=== PATIENT | male | born 1950 | race Hispanic/Latino ===

== ENCOUNTER → 2017-06-26 | Outpatient (CLI) | payer OTHER, MEDICARE ==
[~2017-06-26] MED LIST: PANT40TA25 PO
== END | disposition home or self-care (01) ==
LOC: RAH 15:46
PROVIDERS: ATTEND Urology
DX: R10.9 Unspecified abdominal pain (principal)
CPT/HCPCS: 76857

== ENCOUNTER 2019-02-16 22:01 | Observation (INO) | payer OTHER, MEDICARE ==
[~2019-02-16] VITALS: Ht 175.3 cm; Wt 77.1 kg
[2019-02-16] MEDS ORDERED: ONDANSETRON HCL 4 MG/2 ML VIAL ONE (22:17)
[2019-02-16] MEDS ORDERED: SODIUM CHLORIDE 0.9% 1000ML 1,000 ML IV ONE (22:18)
[2019-02-16 22:22] LABS: BASOPHILS % (AUTO) 0.1 % (0.0-5.0); EOSINOPHILS % (AUTO) 0.3 % (0.0-8.0); HEMATOCRIT 45.7 % (42-54); LYMPHOCYTES % (AUTO) 10.9 % (21.0-51.0); MEAN CORPUSCULAR HGB CONC 34.4 g/dL (32.0-36.0); MEAN CORPUSCULAR VOLUME 90.1 fL (79-99); MONOCYTES % (AUTO) 5.9 % (3.0-13.0); NEUTROPHILS % (AUTO) 82.5 % (40.0-77.0); PLATELET COUNT (AUTO) 227 K/uL (130-400); RED BLOOD CELL COUNT(AUTO) 5.07 MIL/uL (4.50-6.20); RED CELL DISTRIBUTION WIDTH 12.4 % (11.0-15.5); WHITE BLOOD COUNT (AUTO) 7.2 K/uL (4.8-10.8)
[2019-02-16 22:35] LABS: CREATININE 0.9 mg/dL (0.5-1.5); INR 0.97 (0.85-1.15); PARTIAL THROMBOPLASTIN TIME 22.9 SEC (26.3-35.5); POTASSIUM 3.7 mmol/L (3.5-5.1); PROTHROMBIN TIME 10.2 SEC (9.6-11.6)
[2019-02-16 22:41] LABS: ALBUMIN 4.4 g/dL (3.5-5.0); BILIRUBIN,TOTAL 0.9 mg/dL (0.2-1.0); TOTAL PROTEIN, SERUM 7.7 g/dL (6.0-8.3)
[2019-02-16 23:08] LABS: BILIRUBIN,URINE Negative (NEGATIVE); COLOR,URINE Yellow (YELLOW); GLUCOSE, URINE (UA) Negative (NEGATIVE); KETONES,URINE 40 mg/dL (NEGATIVE); LEUKOCYTE ESTERASE ,URINE Negative (NEGATIVE); NITRATE,URINE Negative (NEGATIVE); OCCULT BLOOD,URINE Negative (NEGATIVE); PH,URINE 7.5 (5.0-8.0); PROTEIN,URINE POS 1+ mg/dL (NEGATIVE)
[2019-02-16 23:11] LABS: APPEARANCE,URINE SLIGHTLY CLOUDY (CLEAR)
[2019-02-16] MEDS ORDERED: IOHEXOL-350 75 ML VIAL IV ONE (23:23)
[2019-02-16 23:26] LABS: RBC,URINE None Seen /HPF (0-1); WBC,URINE 0-1 /HPF (0-1)
[2019-02-16 23:27] LABS: AMORPHOUS SEDIMENT,UR Many /LPF (None Seen); BACTERIA,URINE Few /HPF (None Seen); HYALINE CASTS, URINE 0-1 /LPF (0-1 /LPF); MUCUS,URINE Rare LPF (None Seen); SQUAMOUS EPITHELIAL CELL,UR 0-2 /HPF (0-2)
[2019-02-17] MEDS ORDERED: LIDOCAINE HCL 2% JELLY 5 ML ONE (00:56)
[2019-02-17] MEDS ORDERED: SODIUM CHLORIDE 0.9% 1000ML 1,000 ML IV ONE (01:26)
[2019-02-17] MEDS ORDERED: ONDANSETRON HCL 4 MG/2 ML VIAL IVP PRN (02:45)
[2019-02-17 05:15] LABS: BASOPHILS % (AUTO) 0.1 % (0.0-5.0); HEMATOCRIT 46.8 % (42-54); LYMPHOCYTES % (AUTO) 13.1 % (21.0-51.0); MEAN CORPUSCULAR HEMOGLOBIN 31.2 pg (27.0-33.0); MEAN CORPUSCULAR HGB CONC 34.4 g/dL (32.0-36.0); MEAN CORPUSCULAR VOLUME 90.7 fL (79-99); MONOCYTES % (AUTO) 2.7 % (3.0-13.0); NEUTROPHILS % (AUTO) 83.9 % (40.0-77.0); PLATELET COUNT (AUTO) 234 K/uL (130-400); RED BLOOD CELL COUNT(AUTO) 5.16 MIL/uL (4.50-6.20); RED CELL DISTRIBUTION WIDTH 12.6 % (11.0-15.5); WHITE BLOOD COUNT (AUTO) 8.6 K/uL (4.8-10.8)
[2019-02-17 05:30] VITALS: BP 173/98
[2019-02-17 05:31] LABS: CREATININE 0.9 mg/dL (0.5-1.5); POTASSIUM 4.4 mmol/L (3.5-5.1)
[2019-02-17] MEDS ORDERED: OMEP40CA13 PO (05:40)
[2019-02-17] MEDS ORDERED: POTASSIUM CHLORIDE 20MEQ/100ML 100 ML IV PRN (08:00)
[2019-02-17] MEDS ORDERED: DEXTROSE 50%-WATER 50 ML DISP.SYRIN IV PRN (08:00)
[2019-02-17] MEDS ORDERED: GLUCAGON 1MG KIT 1 MG ML IM PRN (08:00)
[2019-02-17] MEDS ORDERED: HYDRALAZINE HCL 20 MG/ML VIAL IV PRN (08:00)
[2019-02-17] MEDS ORDERED: DiphenhydrAMINE HCL 50 MG/ML VIAL IV PRN (08:00)
[2019-02-17] MEDS ORDERED: D5LR-20 MEQ KCL 1000ML BAG IV SCH (08:00)
[2019-02-17] MEDS ORDERED: LIDOCAINE HCL-MPF 1% 2ML VIAL IV PRN (08:00)
[2019-02-17] MEDS ORDERED: POTASSIUM CHLORIDE 10% ELIXIR 20 MEQ/15 ML UDCUP PO PRN (08:00)
[2019-02-17] MEDS ORDERED: POTASSIUM CHLORIDE 20 MEQ ERTAB PO PRN (08:00)
--- NOTE | 2019-02-17 08:00 | NUR ---
NOTE AAOX3. DENIES PAIN OR DISCOMFORT ONLY FROM HAVING NGT. HE REMAINS NPO FOR NOW. NO N.V ABOUT 100ML OUTPUT ONLY.
[2019-02-17 08:06] VITALS: BP 155/97
[2019-02-17] MEDS ORDERED: D5LR-20 MEQ KCL 1000 ML 1,000 ML IV SCH (08:45)
[2019-02-17] MEDS: MEROPENEM 500 MG VIAL IV SCH ×2 (10:06→16:59)
[2019-02-17] MEDS: METRONIDAZOLE 500MG/100ML BAG 100 ML IV SCH ×2 (10:06→16:59)
[2019-02-17] MEDS: FAMOTIDINE/PF 20 MG/2 ML VIAL IV SCH ×2 (10:07→19:28)
[2019-02-17 11:00] VITALS: BP 131/87
--- NOTE | 2019-02-17 11:00 | NUR ---
NOTE SHAHID BLACK WITH DR OLIVAREZ CAME IN AND ASSESSED THE PATIENT. WE WILL CLAMP NGT AND START CLEAR LIQUIDS. IF PATIENT TOLERATES WITHOUT N/V FOR ABOUT 2 HOURS WE WILL DC NGT PER SHAHID'S ORDERS.
[2019-02-17] MEDS: INSULIN HUMULIN R 100 UNIT/ML 3ML SQ SCH ×3 (11:30→20:27)
--- NOTE | 2019-02-17 15:00 | NUR ---
NOTE NGT REMOVED. WILL CONTINUE WITH CLEAR LIQUIDS FOR NOW.
[2019-02-17 16:24] VITALS: BP 123/86
[2019-02-17] MEDS ORDERED: ACETAMINOPHEN 325 MG TAB ONE (17:03)
[2019-02-17] MEDS ORDERED: ACETAMINOPHEN 325 MG TAB PO PRN (17:15)
--- NOTE | 2019-02-17 18:05 | NUR ---
INITIAL MET W PATIENT ALONE, AAOX3, LIVES W SPOUSE [facility] WHO WILL PROVIDE TRNSPORT HOME, UP AND ABOUT IN ROOM WITHOUT ASSISTANCE, STATES USES CAN AT TIME , HAS STAIRS OURSIDE HOME BUT HAS NO TORUBLE GETTING UP ; NO SHOWER CHAIR, NO PROVIDER SERVICES, DIRVES, [facility], DCP HOME. STARTED ON CLEAR LIQUIDS Addendum: 02/17/19 at 1807 by GRADY COOK RN CM Amended: Links added.
[2019-02-17] MEDS: MORPHINE SULFATE 2 MG/ML 1ML SYG IV PRN (20:28)
[2019-02-17 20:30] VITALS: BP 154/87
[2019-02-17 23:54] VITALS: BP 136/87
[2019-02-18] MEDS: MEROPENEM 500 MG VIAL IV SCH ×4 (01:28→22:47)
[2019-02-18] MEDS: METRONIDAZOLE 500MG/100ML BAG 100 ML IV SCH ×4 (01:28→22:47)
--- NOTE | 2019-02-18 03:15 | NUR ---
tele TELEMONITORING STATES PATIENT HAD A RUN OF VENTRICULAR TACHYCARDIA OF 7 SEC WITH 23 BEATS AT A RATE OF 193. PATIENT WAS EXAMINED AND FOUND TO BE ASYMPTOMATIC WITH RATE BACK TO NORMAL AT RATE OF 84. Ganesh SOSA PAGED TO NOTIFY. AWAITING CALL BACK.
--- NOTE | 2019-02-18 03:30 | NUR ---
MD CHRISTINA SOSA PAGED ONCE MORE WITH NO CALL BACK.
--- NOTE | 2019-02-18 04:00 | NUR ---
MD CHRISTINA SOSA RETURNED MY PAGE AND WAS NOTIFIED OF PATIENT STATUS AT THIS TIME AND THE RUN OF VT FROM EARLIER. ORDER TO MONITOR PATIENT AND DO A 12 LEAD ECG IN AM WERE GIVEN AND CARRIED OUT.
[2019-02-18 04:28] VITALS: BP 125/79
[2019-02-18 05:49] LABS: BASOPHILS % (AUTO) 0.2 % (0.0-5.0); EOSINOPHILS % (AUTO) 0.1 % (0.0-8.0); HEMATOCRIT 51.5 % (42-54); LYMPHOCYTES % (AUTO) 11.7 % (21.0-51.0); MEAN CORPUSCULAR HEMOGLOBIN 30.3 pg (27.0-33.0); MEAN CORPUSCULAR HGB CONC 32.8 g/dL (32.0-36.0); MEAN CORPUSCULAR VOLUME 92.5 fL (79-99); NEUTROPHILS % (AUTO) 80.7 % (40.0-77.0); PLATELET COUNT (AUTO) 256 K/uL (130-400); RED BLOOD CELL COUNT(AUTO) 5.57 MIL/uL (4.50-6.20); WHITE BLOOD COUNT (AUTO) 9.5 K/uL (4.8-10.8)
[2019-02-18] MEDS: INSULIN HUMULIN R 100 UNIT/ML 3ML SQ SCH ×4 (05:57→20:41)
[2019-02-18 06:02] LABS: POTASSIUM 3.7 mmol/L (3.5-5.1)
[2019-02-18 07:30] VITALS: BP 128/72
[2019-02-18] MEDS: FAMOTIDINE/PF 20 MG/2 ML VIAL IV SCH ×2 (09:37→20:41)
[2019-02-18 11:00] VITALS: BP 117/79
[2019-02-18] MEDS: METOCLOPRAMIDE 10 MG/2 ML VIAL IVP PRN ×2 (15:28→23:29)
[2019-02-18] MEDS: MORPHINE SULFATE 2 MG/ML 1ML SYG IV PRN ×2 (15:28→20:44)
[2019-02-18 16:07] VITALS: BP 155/83
[2019-02-18 19:46] VITALS: BP 138/80
--- NOTE | 2019-02-18 23:29 | NUR ---
n/v patient states vomited in commode green gastric secretions with blood streaks, patient flushed before nurse could assess, explain to patient not to flush or throw away next time for nurse to asses, no pain at this time,,reglan 5 mg ivp given as ordered, npo post midnite for sbft, patient verbalizes understanding via teach back
[2019-02-18 23:53] VITALS: BP 118/76
--- NOTE | 2019-02-19 | NUR ---
med effect resting comfortably, no nausea or vomiting noted
[2019-02-19] MEDS ORDERED: POTASSIUM PHOS 15 mMOL+NS250ML 250 ML IV ONE (00:45)
[2019-02-19] MEDS ORDERED: DICYCLOMINE HCL 20 MG TAB PO PRN (00:45)
[2019-02-19] MEDS ORDERED: PROMETHAZINE HCL 25 MG/ML 1ML AMPULE IM PRN (00:45)
[2019-02-19 04:00] VITALS: BP 114/70
[2019-02-19] MEDS: INSULIN HUMULIN R 100 UNIT/ML 3ML SQ SCH ×3 (05:53→16:30)
[2019-02-19 06:05] LABS: BASOPHILS % (AUTO) 0.3 % (0.0-5.0); EOSINOPHILS % (AUTO) 0.1 % (0.0-8.0); HEMATOCRIT 45.9 % (42-54); LYMPHOCYTES % (AUTO) 18.6 % (21.0-51.0); MEAN CORPUSCULAR HGB CONC 33.3 g/dL (32.0-36.0); MEAN CORPUSCULAR VOLUME 93.1 fL (79-99); MONOCYTES % (AUTO) 9.4 % (3.0-13.0); NEUTROPHILS % (AUTO) 71.3 % (40.0-77.0); PLATELET COUNT (AUTO) 217 K/uL (130-400); RED BLOOD CELL COUNT(AUTO) 4.93 MIL/uL (4.50-6.20); RED CELL DISTRIBUTION WIDTH 12.9 % (11.0-15.5); WHITE BLOOD COUNT (AUTO) 7.7 K/uL (4.8-10.8)
[2019-02-19 06:29] LABS: MAGNESIUM 1.8 mg/dL (1.80-2.40); PHOSPHORUS 2.5 mg/dL (2.5-4.9); POTASSIUM 3.6 mmol/L (3.5-5.1)
[2019-02-19 07:30] VITALS: BP 111/59
[2019-02-19] MEDS: METOCLOPRAMIDE 10 MG/2 ML VIAL IVP PRN (07:47)
[2019-02-19] MEDS: MORPHINE SULFATE 2 MG/ML 1ML SYG IV PRN (07:48)
[2019-02-19] MEDS ORDERED: FAMOTIDINE/PF 20 MG/2 ML VIAL IV SCH (09:00)
[2019-02-19] MEDS ORDERED: PANTOPRAZOLE 40 MG/VIAL IVP SCH (09:00)
[2019-02-19 11:00] VITALS: BP 130/91
[2019-02-19] MEDS: MEROPENEM 500 MG VIAL IV SCH ×2 (11:12→16:00)
[2019-02-19] MEDS: METRONIDAZOLE 500MG/100ML BAG 100 ML IV SCH ×2 (11:12→16:00)
[2019-02-19 16:00] VITALS: BP 125/87
--- NOTE | 2019-02-19 17:16 | NUR ---
AMA PATIENT STATES THAT HE HAS AN EMERGENCY AT HOME AND CANNOT STAY IN HOSPITAL AT THIS TIME. INFORMED OLLIE SOSA AND DR SALCEDO. DR SALCEDO STATED THAT PATIENT IS NOT READY FOR DISCHARGE AND IS PENDING A GI AND CARDIAC CONSULT. EXPLAINED TO PATIENT THE RISKS OF LEAVING HOSPITAL WITH DOCTORS CONSENT. HOWEVER PATIENT INSISTED THAT HE NEEDS TO GO HOME.
== END 2019-02-19 17:30 | disposition left against medical advice (07) ==
LOC: EDH 22:01 → OBSVTOIN 02-17 01:19 → EDHIP 02-17 01:19 → INTOOBSV 02-17 01:19 → 4DH 02-17 05:38
PROVIDERS: ADMIT Internal Medicine; ATTEND Internal Medicine
DX: K56.609 Unspecified intestinal obstruction, unspecified as to partial versus complete obstruction (principal); K40.20 Bilateral inguinal hernia, without obstruction or gangrene, not specified as recurrent; K57.30 Diverticulosis of large intestine without perforation or abscess without bleeding; R80.9 Proteinuria, unspecified; E78.5 Hyperlipidemia, unspecified; K29.70 Gastritis, unspecified, without bleeding; Z85.46 Personal history of malignant neoplasm of prostate; Z87.11 Personal history of peptic ulcer disease
CPT/HCPCS: 36415 ×4; 74018 ×2; 74177; 74250; 80048 ×3; 80053; 81001; 82550; 82948 ×8; 83605; 83690; 83735 ×2; 84100 ×2; 84484; 85025 ×4; 85610; 85730; 93005 ×2; 96365; 96366 ×3; 96368; 96375 ×2; 96376 ×3; 99284; G0378 ×48; J2185 ×7; J2405 ×2; J2765 ×3; J3490 ×12; J7030 ×2; Q9967; 96372; C9113

== ENCOUNTER 2020-06-02 08:51 | Inpatient (IN) | payer OTHER, MEDICARE ==
[~2020-06-02] VITALS: Ht 175.3 cm; Wt 68.9 kg
[~2020-06-02 08:51] MED LIST changes: +OMEP40CA21 PO; -PANT40TA25 PO
[2020-06-02 09:21] LABS: BASOPHILS % (AUTO) 0.1 % (0.0-5.0); EOSINOPHILS % (AUTO) 0.1 % (0.0-8.0); HEMATOCRIT 46.8 % (42-54); LYMPHOCYTES % (AUTO) 6.7 % (21.0-51.0); MEAN CORPUSCULAR HEMOGLOBIN 31.5 pg (27.0-33.0); MEAN CORPUSCULAR HGB CONC 34.4 g/dL (32.0-36.0); MEAN CORPUSCULAR VOLUME 91.6 fL (79-99); MONOCYTES % (AUTO) 5.2 % (3.0-13.0); NEUTROPHILS % (AUTO) 87.7 % (40.0-77.0); PLATELET COUNT (AUTO) 233 K/uL (130-400); RED BLOOD CELL COUNT(AUTO) 5.11 MIL/uL (4.50-6.20); RED CELL DISTRIBUTION WIDTH 12.7 % (11.0-15.5); WHITE BLOOD COUNT (AUTO) 9.1 K/uL (4.8-10.8)
[2020-06-02 09:29] LABS: APPEARANCE,URINE Cloudy (CLEAR); BILIRUBIN,URINE Negative (NEGATIVE); COLOR,URINE Dark Yellow (YELLOW); GLUCOSE, URINE (UA) Negative (NEGATIVE); KETONES,URINE 40 mg/dL (NEGATIVE); LEUKOCYTE ESTERASE ,URINE Trace (NEGATIVE); NITRATE,URINE Negative (NEGATIVE); OCCULT BLOOD,URINE Negative (NEGATIVE); PH,URINE 7.5 (5.0-8.0); PROTEIN,URINE POS 2+ mg/dL (NEGATIVE)
[2020-06-02 09:32] LABS: POTASSIUM 3.7 mmol/L (3.5-5.1)
[2020-06-02 09:37] LABS: ALBUMIN 4.5 g/dL (3.5-5.0); TOTAL PROTEIN, SERUM 8.5 g/dL (6.0-8.3)
[2020-06-02 09:37] LABS: AMORPHOUS SEDIMENT,UR Few /LPF (None Seen); BACTERIA,URINE None Seen /HPF (None Seen); MUCUS,URINE Few LPF (None Seen); RBC,URINE 0-1 /HPF (0-1); SQUAMOUS EPITHELIAL CELL,UR 0-2 /HPF (0-2); WBC,URINE 0-1 /HPF (0-1)
[2020-06-02] MEDS ORDERED: LEVOFLOXACIN 500 MG/D5W 100 ML 100 ML ONE (15:15)
[2020-06-02] MEDS ORDERED: METRONIDAZOLE 500MG/100ML BAG 100 ML ONE (15:15)
[2020-06-02] MEDS ORDERED: ONDANSETRON 4MG INJ IVP PRN (17:00)
[2020-06-02] MEDS ORDERED: LABETALOL 20MG SYG IV PRN (17:00)
[2020-06-02] MEDS ORDERED: MORPHINE 2 MG SYG IVP PRN (17:00)
[2020-06-02] MEDS ORDERED: ACETAMINOPHEN 650 MG SUPPOSITORY RC PRN (17:00)
[2020-06-02] MEDS ORDERED: ZOSYN 3.375GM +NS 50ML IV SCH (17:00)
[2020-06-02] MEDS ORDERED: ACETAMINOPHEN 325 MG TAB PO PRN (17:00)
[2020-06-02] MEDS: ZOSYN 3.375GM+NS 50ML 50 ML IV SCH (17:15)
[2020-06-02 17:46] LABS: CREATINE KINASE, TOTAL 58 U/L (21-232); MYOGLOBIN 55 ng/mL (10-92); TROPONIN I < 0.04 ng/mL (0.00-0.06)
[2020-06-02] MEDS ORDERED: LACTATED RINGERS 1000ML 1,000 ML IV ONE (18:02)
[2020-06-02] MEDS: INSULIN HUMULIN R 100 UNIT/ML 3ML SQ SCH (21:00)
[2020-06-02 23:00] LABS: CREATINE KINASE, TOTAL 56 U/L (21-232); MYOGLOBIN 71 ng/mL (10-92); TROPONIN I < 0.04 ng/mL (0.00-0.06)
[2020-06-03] MEDS: ZOSYN 3.375GM+NS 50ML 50 ML IV SCH ×4 (01:15→20:28)
[2020-06-03 05:26] LABS: BASOPHILS % (AUTO) 0.2 % (0.0-5.0); EOSINOPHILS % (AUTO) 1.6 % (0.0-8.0); HEMATOCRIT 42.6 % (42-54); LYMPHOCYTES % (AUTO) 19.6 % (21.0-51.0); MEAN CORPUSCULAR HGB CONC 33.1 g/dL (32.0-36.0); MEAN CORPUSCULAR VOLUME 93.6 fL (79-99); MONOCYTES % (AUTO) 12.4 % (3.0-13.0); PLATELET COUNT (AUTO) 195 K/uL (130-400); RED BLOOD CELL COUNT(AUTO) 4.55 MIL/uL (4.50-6.20); WHITE BLOOD COUNT (AUTO) 4.3 K/uL (4.8-10.8)
[2020-06-03 06:01] LABS: CARBON DIOXIDE 26 mmol/L (21-32); CHLORIDE 106 mmol/L (101-111); CREATINE KINASE, TOTAL 57 U/L (21-232); CREATININE 0.8 mg/dL (0.5-1.5); GLOMERULAR FILTR. RATE CALC 101 mL/min (>60); GLUCOSE,RANDOM 106 mg/dL (70-105); MYOGLOBIN 79 ng/mL (10-92); PHOSPHORUS 2.5 mg/dL (2.5-4.9); POTASSIUM 3.9 mmol/L (3.5-5.1); SODIUM SERUM 142 mmol/L (136-145); TROPONIN I < 0.04 ng/mL (0.00-0.06); UREA NITROGEN, BLOOD 17 mg/dL (7-18)
[2020-06-03] MEDS: INSULIN HUMULIN R 100 UNIT/ML 3ML SQ SCH ×4 (07:30→21:00)
[2020-06-03] MEDS ORDERED: ZOSYN 3.375GM+NS 50ML 50 ML IV ONE (07:53)
[2020-06-03] MEDS ORDERED: ENOXAPARIN SODIUM 40 MG/0.4 ML SYRINGE SQ ONE (08:54)
[2020-06-03] MEDS ORDERED: LACTATED RINGERS 1000ML 1,000 ML IV ONE (08:54)
[2020-06-03] MEDS: ENOXAPARIN SODIUM 40 MG/0.4 ML SYRINGE SQ SCH (09:00)
[2020-06-03] MEDS: LACTATED RINGERS 1000ML 1,000 ML IV SCH ×2 (11:52→17:00)
[2020-06-03 11:54] VITALS: BP 138/82
[2020-06-03] MEDS ORDERED: TAMS-1 PO (13:49)
[2020-06-03 16:00] VITALS: BP 140/84
[2020-06-03 20:11] VITALS: BP 110/69
[2020-06-04] VITALS (7 sets, daily range): BP systolic 116–168; BP diastolic 63–91
[2020-06-04] MEDS: ZOSYN 3.375GM+NS 50ML 50 ML IV SCH ×3 (05:22→20:19)
[2020-06-04] MEDS: LACTATED RINGERS 1000ML 1,000 ML IV SCH ×3 (05:23→20:19)
[2020-06-04 06:08] LABS: HEMATOCRIT 39.7 % (42-54); MEAN CORPUSCULAR HEMOGLOBIN 31.8 pg (27.0-33.0); MEAN CORPUSCULAR HGB CONC 33.8 g/dL (32.0-36.0); MEAN CORPUSCULAR VOLUME 94.3 fL (79-99); RED BLOOD CELL COUNT(AUTO) 4.21 MIL/uL (4.50-6.20); RED CELL DISTRIBUTION WIDTH 12.9 % (11.0-15.5); WHITE BLOOD COUNT (AUTO) 3.9 K/uL (4.8-10.8)
[2020-06-04 06:28] LABS: ALBUMIN 3.2 g/dL (3.5-5.0); POTASSIUM 3.9 mmol/L (3.5-5.1); TOTAL PROTEIN, SERUM 6.1 g/dL (6.0-8.3)
[2020-06-04] MEDS: INSULIN HUMULIN R 100 UNIT/ML 3ML SQ SCH ×4 (06:56→20:48)
[2020-06-04] MEDS: ENOXAPARIN SODIUM 40 MG/0.4 ML SYRINGE SQ SCH (10:20)
[2020-06-04] MEDS ORDERED: POLYETHYLENE GLYCOL 3350 17 GM POWD.PACK PO SCH (18:00)
[2020-06-04] MEDS ORDERED: POLYETHYLENE GLYCOL 3350 17 GM POWD.PACK ONE (20:24)
[2020-06-05] MEDS: LACTATED RINGERS 1000ML 1,000 ML IV SCH (03:25)
[2020-06-05 03:30] VITALS: BP 116/70
[2020-06-05 05:48] LABS: BASOPHILS % (AUTO) 0.3 % (0.0-5.0); EOSINOPHILS % (AUTO) 3.1 % (0.0-8.0); HEMATOCRIT 39.1 % (42-54); LYMPHOCYTES % (AUTO) 24.9 % (21.0-51.0); MEAN CORPUSCULAR HEMOGLOBIN 31.4 pg (27.0-33.0); MEAN CORPUSCULAR VOLUME 92.4 fL (79-99); MONOCYTES % (AUTO) 10.5 % (3.0-13.0); NEUTROPHILS % (AUTO) 60.9 % (40.0-77.0); PLATELET COUNT (AUTO) 184 K/uL (130-400); RED BLOOD CELL COUNT(AUTO) 4.23 MIL/uL (4.50-6.20); RED CELL DISTRIBUTION WIDTH 12.3 % (11.0-15.5); WHITE BLOOD COUNT (AUTO) 3.5 K/uL (4.8-10.8)
[2020-06-05] MEDS: ZOSYN 3.375GM+NS 50ML 50 ML IV SCH ×2 (06:09→12:36)
[2020-06-05] MEDS: INSULIN HUMULIN R 100 UNIT/ML 3ML SQ SCH ×3 (06:09→16:30)
[2020-06-05 06:21] LABS: POTASSIUM 3.8 mmol/L (3.5-5.1)
[2020-06-05 08:56] VITALS: BP 123/71
[2020-06-05] MEDS ORDERED: POLYETHYLENE GLYCOL 3350 17 GM POWD.PACK PO SCH (09:00)
[2020-06-05] MEDS: ENOXAPARIN SODIUM 40 MG/0.4 ML SYRINGE SQ SCH (09:36)
[2020-06-05 13:38] VITALS: BP 131/85
[2020-06-05 16:30] VITALS: BP 144/84
== END 2020-06-05 18:15 | disposition home or self-care (01) | DRG 392 ==
LOC: EDH 08:51 → EDHIP 16:52 → OBSVTOIN 16:52 → 3CH 06-03 11:35
PROVIDERS: ADMIT Internal Medicine; ATTEND Internal Medicine
DX: K57.32 Diverticulitis of large intestine without perforation or abscess without bleeding (principal); K52.9 Noninfective gastroenteritis and colitis, unspecified; I10 Essential (primary) hypertension; N40.0 Benign prostatic hyperplasia without lower urinary tract symptoms; K40.20 Bilateral inguinal hernia, without obstruction or gangrene, not specified as recurrent; K21.9 Gastro-esophageal reflux disease without esophagitis; R80.9 Proteinuria, unspecified; Z85.46 Personal history of malignant neoplasm of prostate
CPT/HCPCS: 36415; 74176; 80048; 80053; 81001; 82550; 82948; 83735; 83874; 84100; 84484; 85025; 85027; G0378; J1650; J1956; J2543; J3490; J7120

== ENCOUNTER → 2020-08-02 | Outpatient (CLI) | payer OTHER, MEDICARE ==
[~2020-08-02] MED LIST changes: +IOHEXOL 350 MG/ML 100ML INFUS..BTL IV ONE; +OMEP40CA13 PO; -OMEP40CA21 PO; +TAMS-1 PO
== END | disposition home or self-care (01) ==
LOC: RAH 08:08
PROVIDERS: ATTEND Internal Medicine Gastroenterology
DX: K76.89 Other specified diseases of liver (principal); K57.90 Diverticulosis of intestine, part unspecified, without perforation or abscess without bleeding; M51.37 Other intervertebral disc degeneration, lumbosacral region
CPT/HCPCS: 74178; Q9967

== ENCOUNTER 2021-05-09 02:13 | Observation (INO) | payer OTHER, MEDICARE ==
[~2021-05-09] VITALS: Ht 175.3 cm; Wt 68.0 kg
[~2021-05-09 02:13] MED LIST changes: -IOHEXOL 350 MG/ML 100ML INFUS..BTL IV ONE; -OMEP40CA13 PO; +OMEP40CA21 PO
[2021-05-09] MEDS ORDERED: ACETAMINOPHEN 325 MG TAB PO ONE (02:30)
[2021-05-09] MEDS ORDERED: ONDANSETRON 4MG INJ IVP ONE (02:30)
[2021-05-09] MEDS ORDERED: FAMOTIDINE 20MG TAB PO ONE (02:30)
[2021-05-09] MEDS ORDERED: DICYCLOMINE 20MG (10MG/ML) AMP IM ONE (02:30)
[2021-05-09] MEDS ORDERED: LACTATED RINGERS 1000ML 1,000 ML IV ONE (02:30)
[2021-05-09 03:15] LABS: BASOPHILS % (AUTO) 0.2 % (0.0-5.0); HEMATOCRIT 46.5 % (42-54); LYMPHOCYTES % (AUTO) 9.2 % (21.0-51.0); MEAN CORPUSCULAR HGB CONC 33.1 g/dL (32.0-36.0); MEAN CORPUSCULAR VOLUME 90.5 fL (79-99); MONOCYTES % (AUTO) 4.1 % (3.0-13.0); NEUTROPHILS % (AUTO) 86.2 % (40.0-77.0); PLATELET COUNT (AUTO) 224 K/uL (130-400); RED BLOOD CELL COUNT(AUTO) 5.14 MIL/uL (4.50-6.20); RED CELL DISTRIBUTION WIDTH 13.2 % (11.0-15.5); WHITE BLOOD COUNT (AUTO) 6.4 K/uL (4.8-10.8)
[2021-05-09 03:34] LABS: ALBUMIN 4.2 g/dL (3.5-5.0); BILIRUBIN,TOTAL 0.7 mg/dL (0.2-1.0); CREATININE 0.9 mg/dL (0.5-1.5); POTASSIUM 4.3 mmol/L (3.5-5.1); TOTAL PROTEIN, SERUM 8.1 g/dL (6.0-8.3)
[2021-05-09] MEDS ORDERED: IOHEXOL 350 MG/ML 100ML INFUS..BTL IV ONE (04:43)
[2021-05-09] MEDS ORDERED: LABETALOL 20MG SYG IV PRN (09:00)
[2021-05-09] MEDS ORDERED: DOXYCYCLINE 100MG+NS 250ML IV SCH (09:00)
[2021-05-09] MEDS ORDERED: ACETAMINOPHEN 325 MG TAB PO PRN (09:00)
[2021-05-09] MEDS ORDERED: LACTULOSE 20 GM/30 ML UDCUP PO PRN (09:00)
[2021-05-09] MEDS ORDERED: ONDANSETRON 4MG INJ IVP PRN (09:00)
[2021-05-09] MEDS ORDERED: HYDRALAZINE 20MG/ML VIAL IV PRN (09:00)
[2021-05-09] MEDS ORDERED: ALBUTEROL 0.083% 2.5 MG/3 ML INH IH PRN (09:00)
[2021-05-09] MEDS: PANTOPRAZOLE 40 MG/VIAL IVP SCH (09:50)
[2021-05-09] MEDS: DOXYCYCLINE 100MG+NS 250ML 250 ML IV SCH ×2 (09:50→20:25)
[2021-05-09] MEDS: INSULIN HUMULIN R 100 UNIT/ML 3ML SQ SCH ×2 (11:30→16:30)
[2021-05-09 16:00] VITALS: BP 114/74
[2021-05-09 20:00] VITALS: BP 109/74
[2021-05-09] MEDS: DEXTROSE 5 %-0.45 % NACL 1,000 ML IV SCH (21:18)
[2021-05-10 00:32] VITALS: BP 109/73
[2021-05-10 03:55] VITALS: BP 102/62
[2021-05-10] MEDS: INSULIN HUMULIN R 100 UNIT/ML 3ML SQ SCH ×4 (06:00→17:18)
[2021-05-10 06:18] LABS: BASOPHILS % (AUTO) 0.3 % (0.0-5.0); EOSINOPHILS % (AUTO) 2.1 % (0.0-8.0); LYMPHOCYTES % (AUTO) 29.5 % (21.0-51.0); MEAN CORPUSCULAR HEMOGLOBIN 30.1 pg (27.0-33.0); MEAN CORPUSCULAR HGB CONC 32.3 g/dL (32.0-36.0); MEAN CORPUSCULAR VOLUME 93.2 fL (79-99); MONOCYTES % (AUTO) 12.1 % (3.0-13.0); NEUTROPHILS % (AUTO) 55.7 % (40.0-77.0); PLATELET COUNT (AUTO) 205 K/uL (130-400); RED BLOOD CELL COUNT(AUTO) 4.29 MIL/uL (4.50-6.20); RED CELL DISTRIBUTION WIDTH 13.5 % (11.0-15.5); WHITE BLOOD COUNT (AUTO) 3.7 K/uL (4.8-10.8)
[2021-05-10 06:43] LABS: CREATININE 0.8 mg/dL (0.5-1.5); MAGNESIUM 2.1 mg/dL (1.80-2.40); PHOSPHORUS 2.4 mg/dL (2.5-4.9); POTASSIUM 3.8 mmol/L (3.5-5.1); THYROID STIMULATING HORMONE 0.18 uIU/mL (0.36-3.74)
[2021-05-10 08:00] VITALS: BP 111/68
[2021-05-10] MEDS: PANTOPRAZOLE 40 MG/VIAL IVP SCH (08:18)
[2021-05-10] MEDS: DOXYCYCLINE 100MG+NS 250ML 250 ML IV SCH (08:18)
[2021-05-10] MEDS: DEXTROSE 5 %-0.45 % NACL 1,000 ML IV SCH (11:28)
[2021-05-10] MEDS ORDERED: DIATR MEGLU/DIATRIZOATE SODIUM 30 ML BOTTLE ONE ×2 (11:47→11:51)
[2021-05-10 12:00] VITALS: BP 116/75
[2021-05-10 16:00] VITALS: BP 129/87
== END 2021-05-10 18:15 | disposition home or self-care (01) ==
LOC: EDH 02:13 → INTOOBSV 08:45 → EDHIP 08:45 → OBSVTOIN 08:45 → 3AH 14:54
PROVIDERS: ADMIT Internal Medicine Critical Care Medicine; ATTEND Internal Medicine Critical Care Medicine
DX: K56.609 Unspecified intestinal obstruction, unspecified as to partial versus complete obstruction (principal); R11.2 Nausea with vomiting, unspecified; K44.9 Diaphragmatic hernia without obstruction or gangrene; R91.1 Solitary pulmonary nodule; N40.0 Benign prostatic hyperplasia without lower urinary tract symptoms; I10 Essential (primary) hypertension; Z98.890 Other specified postprocedural states; Z79.899 Other long term (current) drug therapy
CPT/HCPCS: 36415 ×2; 74018; 74177; 74250; 80048; 80053; 82150; 82948 ×7; 83690; 83735; 84100; 84443; 84484; 85025 ×2; 93005; 96361 ×2; 96365; 96366; 96372; 96375; 96376; 99291; C9113 ×2; G0378; J0500; J2405; J3490 ×3; J7042 ×2; J7120; Q9963 ×2; Q9967